=== PATIENT | male | born 1955 | race Caucasian/White ===

== ENCOUNTER 2021-09-06 13:19 | Outpatient (CLI) | payer MEDICARE, SELFPAY ==
--- NOTE | ~2021-09-06 | XR_ITS ---
XR chest 2V DATE: 09/06/2021 13:44 INDICATION: Cough for 2 months. Covid infection in July 2021 TECHNIQUE: 2 views COMPARISON: 02/13/2018 two-view chest, PA and lateral projections FINDINGS: Heart size is within normal limits. Is aortic calcification, ectasia and tortuosity. No hil ar or mediastinal enlargement. No pulmonary infiltrate or consolidation, pleural effusion or pulmonary vascular congestion or pneumo thorax is detected. There is diffuse osteopenia. There is degenerative spurring of the thoracic spine. Surgical clips are noted overlying the anterior upper abdomen on lateral view, likely due to cholecys tectomy. IMPRESSION: No active cardiac pulmonary disease Osteopenia Reviewed, dictated and finalized at location [facility]. [facility]
== END 2021-09-06 13:20 | disposition home or self-care (01) ==
LOC: CHSLAB 13:28
PROVIDERS: PCP Internal Medicine; Visit Provider Internal Medicine
DX: R05.9 Cough, unspecified (principal); Z79.899 Other long term (current) drug therapy
CPT/HCPCS: 71046

== ENCOUNTER 2022-08-11 10:50 | Emergency (ER) | payer MEDICARE, SELFPAY ==
--- NOTE | ~2022-08-11 | US_ITS ---
EXAMINATION: US venous doppler [facility] DATE: 08/11/2022 13:53 INDICATION: Left lower limb pain post recent cessation of anticoagulation TECHNIQUE: Grayscale ultrasound images without and with compression and Doppler ultrasound images of the left lower extremity veins were obtained. COMPARISON: None. FINDINGS: The visualized portions of left common femoral vein, profunda (deep) femoral vein, femoral vein, popl iteal vein, peroneal veins, posterior tibial veins, gastrocnemius vein and greater saphenous vein out flow are patent. IMPRESSION: 1. No deep venous thrombosis in the left lower limb. Reviewed, dictated and finalized at location [facility]
[2022-08-11 11:28] VITALS: BP 132/91; PULSE 86; RESP 16; TEMP 36.8; O2SAT 98
--- NOTE | 2022-08-11 12:32 | ED.EXTPRO ---
HPI - Extremity Problem General Chief complaint: Extremity Problem,Nontraumatic Stated complaint: Leg pain Time Seen by Provider: 08/11/22 11:06 Source: patient Mode of arrival: ambulatory Limitations: no limitations History of Present Illness HPI Narrative: Patient is a 66 y/o male who presents to the ED with c/o L calf pain. Patient reports having pain in his left calf for the past 3 days. He does note he was cleaning and doing more strenuous activity on Saturday and noted some discomfort initially afterwards. The pain is mild and intermittent. He has not tried anything for pain. Patient reports he had been on Xarelto for 7 years due to history of postsurgical DVT and atrial fibrillation. He was taken off his Xarelto approx. 1 month ago after having loop recorder implanted and no further signs of atrial fibrillation. Patient is concerned he may now have a blood clot. Denies any swelling, redness, warmth in LLE. He is able to ambulate. Denies fevers. Denies SOB or CP. Related Data Allergies Allergy/AdvReac Type Severity Reaction Status Date / Time clarithromycin Allergy Intermediate Unknown Verified 08/11/22 11:00 lisinopril Allergy Intermediate Unknown Verified 08/11/22 11:00 Penicillins Allergy Intermediate Unknown Verified 08/11/22 11:00 prochlorperazine Allergy Intermediate Unknown Verified 08/11/22 11:00 tetanus immune globulin Allergy Mild swelling Verified 08/11/22 11:00 at injection site heparin Allergy Unknown GOT BLOOD Verified 08/11/22 11:00 CLOTS Heparin Sodium Allergy Intermediate Unknown Uncoded 08/11/22 10:51 Review of Systems Review of Systems: CONSTITUTIONAL: Denies fever, chills, or sweats. SKIN: See HPI. MUSCULOSKELETAL: See HPI. NEUROLOGIC: Denies tingling, numbness, or weakness. All systems reviewed & are unremarkable except as noted in HPI and below [facility] Past Medical History Medical History (Updated 08/11/22 @ 14:29 by Johanna Chung PA-C) Atrial fibrillation (11/05/17) GERD (gastroesophageal reflux disease) (11/05/17) Hx of deep venous thrombosis Hx of pulmonary embolus Hypertension (11/05/17) Surgical History Surgical History (Updated 08/11/22 @ 13:54 by Johanna Chung PA-C) History of gastric bypass Social History Social History (Updated 08/11/22 @ 13:54 by Johanna Chung PA-C) Smoking status: Never smoker Exam Narrative: GENERAL: Well appearing, obese, non-toxic, in no acute distress. HEAD: Normocephalic, atraumatic. NECK: Supple. No adenopathy, no masses. RESPIRATORY: Airway patent, respirations nonlabored. Clear to auscultation bilaterally, no rales, rhonchi, wheezing. CARDIOVASCULAR: Regular rate and rhythm without murmurs, rubs, or gallops. Pedal pulses 2+ and equal bilaterally. MUSCULOSKELETAL: Moves all extremities. Strength/ROM intact without gross deformities. No significant calf tenderness to palpation. No edema. No redness/warmth to L lower leg. Area of ecchymosis to L lateral lower leg, not significantly tender. SKIN: Warm, dry, normal color. No rashes. No wounds. NEURO: A&O X3. Speech clear. Cranial nerves II-XII grossly intact. No ataxic movements. PSYCHIATRIC: Appropriate mood and affect. Normal interaction. Course Vital Signs Vital signs: Vital Signs Temperature 98.3 F 08/11/22 11:28 Pulse Rate 86 08/11/22 11:28 Respiratory Rate 16 08/11/22 11:28 Blood Pressure 132/91 H 08/11/22 11:28 Pulse Oximetry 98 08/11/22 11:28 Temperature 98.0 F 08/11/22 14:47 Pulse Rate 79 08/11/22 14:47 Respiratory Rate 16 08/11/22 14:47 Blood Pressure 136/80 08/11/22 14:47 Pulse Oximetry 98 08/11/22 14:47 MDM - Extremity (Nontraumatic) MDM Narrative Medical decision making narrative: Patient presented to ED with several day history of mild left calf pain. History of DVT in the past, recently taken off of his Xarelto, concerned he may have developed another DVT. Vitals stable upon arrival. Exam f
--- NOTE | 2022-08-11 13:55 | ECG_ITS ---
Measurements Intervals [place] Rate: 75 P: 62 CA: 172 QRS: -27 QRSD: 112 T: 0 QT: 372 QTc: 415 Interpretive Statements SINUS RHYTHM INTRAVENTRICULAR CONDUCTION DELAY VOLTAGE CRITERIA FOR LVH BORDERLINE R WAVE PROGRESSION, ANTERIOR LEADS BORDERLINE T WAVE ABNORMALITY- INFERIOR LEADS BORDERLINE ECG NO PREVIOUS ECG AVAILABLE FOR COMPARISON Electronically Signed On 08-11-2022 16:12:26 [employer]ONG AND DANCE PERFORMER by Rashaun Ruiz D.O.
[2022-08-11 14:47] VITALS: BP 136/80; PULSE 79; RESP 16; TEMP 36.7; O2SAT 98
== END 2022-08-11 14:48 | disposition home or self-care (01) ==
PROVIDERS: Emergency Provider Emergency Medicine; PCP Internal Medicine
DX: M79.662 Pain in left lower leg (principal); I48.91 Unspecified atrial fibrillation; K21.9 Gastro-esophageal reflux disease without esophagitis; I10 Essential (primary) hypertension; Z86.718 Personal history of other venous thrombosis and embolism; Z86.711 Personal history of pulmonary embolism; Z79.01 Long term (current) use of anticoagulants; Z98.84 Bariatric surgery status
CPT/HCPCS: 93005; 93971; 99284

== ENCOUNTER 2023-11-15 18:08 | Emergency (ER) | payer MEDICARE, SELFPAY ==
[2023-11-15] VITALS (13 sets, daily range): BP systolic 118–167; BP diastolic 77–94; PULSE 77–137; RESP 12–20; TEMP 36.7–36.8; O2SAT 92–100
--- NOTE | ~2023-11-15 | XR_ITS ---
EXAMINATION: XR chest 1V portable DATE: 11/15/2023 18:26 INDICATION: Atrial fibrillation with rapid ventricular rate. TECHNIQUE: A single frontal view of the chest was obtained. COMPARISON: None. FINDINGS: There is no pneumonia, pleural effusion, or pneumothorax. The heart size is normal. There i s electronic implant overlies left chest. IMPRESSION: 1. No acute cardiopulmonary disease. Reviewed, dictated and finalized at location E.
--- NOTE | 2023-11-15 18:13 | ECG_ITS ---
SEE SCANNED COPY FOR CONFIRMED REPORT MTDD
--- NOTE | 2023-11-15 18:33 | ED.GENADULT ---
HPI - General Adult General Chief complaint: Unspecified Stated complaint: afib call from cardio regarding loop recorder Time Seen by Provider: 11/15/23 18:15 History of Present Illness HPI narrative: the patient is a 68-year-old male with a distant history of atrial fibrillation diagnosed 8 years ago was on Xarelto for 5 years as well as amiodarone. He had no recurrence of atrial fibrillation was in sinus rhythm for prolonged period of time. He underwent a 30 day Holter monitor which revealed no atrial fibrillation so loop recorder was implanted 3 years ago and he has been off of amiodarone and Xarelto since that time. 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 He was told that he is allergic to heparin at that time. He has had bilateral total knee arthroplasties. Other comorbidities include GERD and hypertension. The patient received a message from the loop recorder monitoring company stating that he was back in atrial fibrillation since 10:30 p.m. last night, 11/14/2023. The patient is asymptomatic. He denies any nausea or vomiting or diaphoresis or shortness of breath or chest discomfort or tightness or heaviness. He is unable to tell that he is in atrial fibrillation with rapid heartbeat. He presents for further management. He denies other complaints are Related Data Home Medications Medication Instructions Recorded Confirmed Unable to Obtain Home Medications 11/15/23 11/15/23 Allergies Allergy/AdvReac Type Severity Reaction Status Date / Time clarithromycin Allergy Intermediate Unknown Verified 11/15/23 18:18 lisinopril Allergy Intermediate Unknown Verified 11/15/23 18:18 Penicillins Allergy Intermediate Unknown Verified 11/15/23 18:18 prochlorperazine Allergy Intermediate Unknown Verified 11/15/23 18:18 tetanus immune globulin Allergy Mild swelling Verified 11/15/23 18:18 at injection site heparin Allergy Unknown GOT BLOOD Verified 11/15/23 18:18 CLOTS Heparin Sodium Allergy Intermediate Unknown Uncoded 11/15/23 18:18 Review of Systems Review of Systems: All systems reviewed & are unremarkable except as noted in HPI and below Constitutional: Constitutional: Denies chills, Denies excessive sweating, Denies fatigue, Denies fever(s), Denies headache(s) and Denies weakness Eyes: Eyes: Denies change in vision and Denies photophobia ENT: Denies dysphagia, Denies dizziness, Denies headache(s), Denies lip swelling, Denies nasal congestion, Denies sore throat and Denies tongue swelling Cardiovascular: Cardiovascular: Denies chest pain, Denies syncope, Denies rapid heart rate and Denies dyspnea Respiratory: Respiratory: Denies cough, Denies dyspnea and Denies wheezing Gastrointestinal: Gastrointestinal: Denies abdominal pain, Denies constipation, Denies dysphagia, Denies diarrhea, Denies nausea and Denies vomiting Genitourinary: Genitourinary: Denies hematuria, Denies dysuria, Denies urinary frequency and Denies urinary urgency Musculoskeletal: Musculoskeletal: Denies back pain, Denies myalgias, Denies arthralgias, Denies joint swelling and Denies numbness Integumentary/Breasts: Skin/Breast: Denies pruritus, Denies erythema and Denies rash Neurologic: Denies confusion, Denies dizziness, Denies syncope, Denies headache(s), Denies focal weakness, Denies numbness and Denies weakness Psychiatric: Psychiatric: Denies anxiety and Denies confusion Endocrine: Endocrine: Denies excessive sweating and Denies fatigue Hematologic/Lymphatic: Hematologic/Lymphatic: Denies easy bleeding and Denies easy bruising Allergic/Immunologic: Allergic/Immunologic: Denies lip swelling, Denies tongue swelling and Denies wheezing PMFSH Past Medical History Medical History (Reviewed 11/15/23 @ 18:39 by Ankit Duran
--- NOTE | 2023-11-15 18:56 | PC.NURSE ---
Assumed care of pt at this time. Pt to be medicated as ordered for a-fib. Pt states is asymptomatic at this time. Pt states is not on anticoagulants has been off of them for approx 2 years.
[2023-11-15] MEDS: dilTIAZem HCl INJ 25 MG/5 ML VIAL 10 MG IV PUSH (19:02)
[2023-11-15] MEDS: dilTIAZem 100 MG/100 ML 100 MG/100 ML BAG IV CONT (19:04)
[2023-11-15] MEDS: MAGNESIUM SULF 2 GM/WATER 50ML 2 GM/50 ML BAG IVPB (19:08)
[2023-11-15 19:15] LABS: Basophils Absolute Auto 0.04 K/mm3 (0.00-0.10); Basophils Percent Auto 0.6 % (0.0-1.0); Eosinophils Absolute Auto 0.06 K/mm3 (0.02-0.50); Eosinophils Percent Auto 0.9 % (1.0-6.0); Hematocrit 52.7 % (37.0-46.0); Immature Granulocyte Absolute 0.05 K/mm3 (0.00-0.00); Immature Granulocyte Percent A 0.8 % (0.0-0.0); Lymphocytes Absolute Auto 1.08 K/mm3 (1.10-4.50); Lymphocytes Percent Auto 16.6 % (18.0-42.0); Mean Corpuscular HGB Conc 32.3 g/dL (32-36); Mean Corpuscular Volume 86.7 fL (78.0-102.0); Mean Platelet Volume 12.4 fl (8.7-11.0); Monocytes Absolute Auto 0.64 K/mm3 (0.10-0.90); Monocytes Percent Auto 9.8 % (2.0-11.0); Neutrophils Absolute Auto 4.63 K/mm3 (1.70-7.20); Neutrophils Percent Auto 71.3 % (50.0-70.0); Platelet Count Result 141 K/mm3 (150-420); Red Blood Count 6.08 M/mm3 (4.70-6.10); Red Cell Distribution Width 15.1 % (11.6-14.4); White Blood Count 6.5 K/mm3 (4.8-10.8)
[2023-11-15 19:30] LABS: Partial Thromboplastin Time 27.3 Sec (23.9-30.70); Prothrombin Time 10.9 Seconds (9.50-12.1)
[2023-11-15 19:37] LABS: Alanine Aminotransferase 48 U/L (16-63); Albumin Level 3.7 g/dL (3.4-5.0); Alkaline Phosphatase 92 U/L (46-116); Anion Gap 5 mmol/L (4-12); Aspartate Amino Transferase 28 U/L (15-37); Bilirubin,Total 0.6 mg/dL (0.00-1.00); Blood Urea Nitrogen 15 mg/dL (7-18); Calcium 9.7 mg/dL (8.5-10.1); Carbon Dioxide 31 mmol/L (21-32); Chloride 109 mmol/L (98-108); Estimated Glomerular Filt Rate > 60; Glucose 81 mg/dL (70-99); Magnesium 2.2 mg/dL (1.8-2.4); NT Pro B Type Natriuretic Pept 1118 pg/mL (0-125); Osmolality Calculated 299 mOsm/kg (285-295); Potassium 3.9 mmol/L (3.5-5.1); Sodium 145 mmol/L (136-145); Total Protein 6.5 g/dL (6.4-8.2); Troponin I 8.6 ng/L (0.00-60.4)
[2023-11-15] MEDS: POTASSIUM CHLORIDE 20 MEQ ER TABLET 40 MEQ PO (20:18)
[2023-11-15] MEDS: RIVAROXABAN 15 MG TABLET PO (20:25)
== END 2023-11-15 21:52 | disposition short-term general hospital (02) ==
PROVIDERS: Emergency Provider Emergency Medicine; PCP Internal Medicine
DX: I48.0 Paroxysmal atrial fibrillation (principal); I10 Essential (primary) hypertension; K21.9 Gastro-esophageal reflux disease without esophagitis; Z98.84 Bariatric surgery status; Z86.718 Personal history of other venous thrombosis and embolism; Z86.711 Personal history of pulmonary embolism
CPT/HCPCS: 36415; 71045; 80053; 83605; 83735; 83880; 84484; 85025; 85610; 85730; 93005; 96365; 96366; 96368; 99285; A9270; J3475

== ENCOUNTER 2023-11-15 23:06 | Inpatient (IN) | payer MEDICARE, SELFPAY ==
--- NOTE | 2023-11-15 22:38 | ADMGEN ---
This patient, Bennie Tapia, was admitted to IMU Room 200-01. Patient/family oriented to hospital policies and general routines including ID bracelet, bed and alarms, visiting hours, pain management, procedures, bathroom and other care routines, personal items, smoking policy, room service/diet, and visiting hours. Information on how to activate the Rapid Response Team has been discussed. Patient/Family are encouraged to report perceived risks to care and to ask questions if they do not understand what they are told or what they should do.
[2023-11-15 22:40] VITALS: BP 124/101; PULSE 106; RESP 18; TEMP 36.4; O2SAT 99; BMI 40.6
--- NOTE | 2023-11-15 22:45 | PC.NURSE ---
Pt arrived to IMU 200 at 2230 with cardizem drip at 5mg/hr from [facility] ER. Left Message for admitting provider to notify of arrival at 2. Continuing diltiazem at this time until provider examines pt.
--- NOTE | 2023-11-15 23:06 | PM.IMHP ---
H&P: HPI History of Present Illness Date/Time: 11/15/23 23:06 Chief Complaint: abnormal rhythm Narrative: This is a 68-year-old male with past medical history significant for atrial fibrillation, obesity. Patient presents to the emergency room after given notice that his loop recorder showed atrial fibrillation and was prompted to come to the emergency he presented to outside facility and was transferred to our facility for further evaluation management and treatment. Patient had been in the mall and walked over 6000 steps was feeling well denies any lightheadedness, syncope or near syncope, no shortness of breath, no pedal swelling no leg swelling no chest pain no palpitations. Patient was started on diltiazem drip and transferred to our facility. EXAMINATION: XR chest 1V portable DATE: 11/15/2023 18:26 INDICATION: Atrial fibrillation with rapid ventricular rate. TECHNIQUE: A single frontal view of the chest was obtained. COMPARISON: None. FINDINGS: There is no pneumonia, pleural effusion, or pneumothorax. The heart size is normal. There is electronic implant overlies left chest. IMPRESSION: 1. No acute cardiopulmonary disease. Review of Systems Review of Systems: Abnormal heart rhythm Constitutional: Constitutional: Denies chills, Denies fatigue, Denies fever(s), Denies night sweats and Denies weakness Eyes: Eyes: Denies change in vision ENT: Denies dysphagia, Denies vertigo, Denies dizziness and Denies odynophagia Cardiovascular: Cardiovascular: Denies chest pain, Denies pedal edema, Denies leg edema, Denies radiating jaw, neck or arm pain, Denies palpitations and Denies dyspnea Respiratory: Respiratory: Denies chest congestion and Denies cough Gastrointestinal: Gastrointestinal: Denies abdominal pain, Denies dyspepsia, Denies heartburn, Denies diarrhea, Denies nausea and Denies vomiting Genitourinary: Genitourinary: Denies dysuria and Denies flank pain Musculoskeletal: Musculoskeletal: Denies back pain Integumentary/Breasts: Skin/Breast: Denies rash Neurologic: Denies focal weakness and Denies Sensory deficit (Neuro) Psychiatric: Psychiatric: Reports no additional psychiatric complaints and Reports as per HPI Endocrine: Endocrine: Denies cold intolerance, Denies fatigue, Denies flushing, Denies heat intolerance, Denies polyphagia, Denies polydipsia, Denies polyuria and Denies palpitations Hematologic/Lymphatic: Hematologic/Lymphatic: Reports no additional hematologic/lymphatic complaints and Reports as per HPI Allergic/Immunologic: Allergic/Immunologic: Reports no additional allergic/immunologic complaints and Reports as per HPI [facility] Past Medical History Medical History Atrial fibrillation (11/05/17) GERD (gastroesophageal reflux disease) (11/05/17) Hx of deep venous thrombosis Hx of pulmonary embolus Hypertension (11/05/17) Surgical History Surgical History History of gastric bypass Family History Family History (Updated 11/15/23 @ 23:58 by Palak Chavira RN) Mother age 52 Sibling Hypertension Social History Social History Smoking status: Never smoker Second hand tobacco smoke exposure: No Alcohol intake: current Substance use: never Do You Feel Safe in your Home?: Yes Lack of Transportation: No Lack of Food: Never True Current Housing: I Have Housing Concerned About Future Housing: No Difficulty Paying Gas/Electric Bills: No Difficulty Paying for Meds: No Currently Unemployed: YES Education: High School Diploma/GED Difficulty w/ Childcare or Family Care: No Spiritual care concerns: No Meds Home Medications and Allergies Home Medications Medication Instructions Recorded Confirmed Type Adults Multivitamin 1 cap PO DAILY 11/15/23 11/15/23 History ascorbi
[2023-11-16] VITALS (27 sets, daily range): BP systolic 104–149; BP diastolic 67–104; PULSE 62–133; RESP 12–24; TEMP 36.2–36.8; O2SAT 97–100
--- NOTE | 2023-11-16 | ECHO_ITS ---
Patient Info Name: Bennie Tapia Age: 68 years : 1955 Gender: Male Ht: 70 in Wt: 283 lbs BSA: 2.57 m2 HR: 120 bpm BP: 120 / 76 mmHg Heart Rhythm: Atrial Fibrillation Technical Quality: Fair Exam Date: 11/16/2023 7:16 AM Exam Location: Echo Lab Exam Room: [facility] Patient Status: Inpatient Admit Date: 11/15/2023 Staff Ordering Physician: Marques Joy MD Acrylic Fabricator: Danielle Huntley RDCS Attending Provider: Marques Joy MD Referring Physician: Rufino LESLIE; Exam Type: CA echo doppler color flow Study Info Indications - afib Complete two-dimensional, color flow and Doppler transthoracic echocardiogram is performed. Summary 1. Complete two-dimensional, color flow and Doppler transthoracic echocardiogram is performed. 2. Left ventricular chamber dimension is normal. 3. Left ventricular systolic function is normal, estimated at 55-60%. 4. There is mildly increased left ventricular wall thickness. 5. The left ventricular diastolic function is indeterminate. 6. Left atrial chamber dimension is moderately enlarged. 7. There is mild mitral valve regurgitation. 8. There is mild tricuspid valve regurgitation. Left Ventricle Left ventricular chamber dimension is normal. Left ventricular systolic function is normal, estimated at 55-60%. There is mildly increased left ventricular wall thickness. The left ventricular diastolic function is indeterminate. Right Ventricle Right ventricular chamber dimension is normal. Right ventricular systolic function is normal. Left Atria Left atrial chamber dimension is moderately enlarged. Right Atria Right atrial chamber dimension is normal. Atrial Septum Intact interatrial septum visualized by color flow imaging. Aortic Valve The aortic valve is trileaflet. There is mild aortic valve sclerosis. There is no aortic valve stenosis. There is trace aortic valve regurgitation. Pulmonic Valve The pulmonic valve is normal. There is no pulmonic valve stenosis. There is trace pulmonic regurgitation. Mitral Valve The mitral valve has normal leaflets. There is no mitral valve stenosis. There is mild mitral valve regurgitation. Tricuspid Valve The tricuspid valve leaflets are normal. There is no significant tricuspid valve stenosis. There is mild tricuspid valve regurgitation. No pulmonary hypertension, estimated pulmonary arterial systolic pressure is 32 mmHg. Pericardium/Pleural The pericardium appears normal. There is no pericardial effusion. Inferior Vena Cava Dilated inferior vena cava with >50% collapse upon inspiration consistent with elevated right atrial pressure, 10 mmHg. Aorta The aortic root size at the sinus of Valsalva is normal. Left Ventricular Outflow Tract Name Value Normal LVOT 2D LVOT Diameter 2.1 cm LVOT Doppler LVOT Peak Gradient 4 mmHg LVOT Mean Gradient 2 mmHg LVOT VTI 21 cm LVOT VTI/AV VTI Ratio 0.9 LVOT Stroke Volume 72 ml LVOT CO 15.6 l/min LVOT CI 6.0 l/min/m2 Pulmonic Valve
[2023-11-16] MEDS: FELODIPINE 2.5 MG TABCR PO (00:08)
[2023-11-16] MEDS: dilTIAZem 100 MG/100 ML 100 MG/100 ML BAG IV CONT (00:11)
[2023-11-16] MEDS: ACETAMINOPHEN 500 MG TABLET 1000 MG PO ×2 (00:44→12:00)
[2023-11-16 04:14] LABS: Anion Gap 4 mmol/L (4-12); Blood Urea Nitrogen 14 mg/dL (9-20); Calcium 9.8 mg/dL (8.4-10.2); Carbon Dioxide 26 mmol/L (22-30); Chloride 110 mmol/L (98-107); Estimated CRCL calculation 135 ml/min; Estimated Glomerular Filt Rate > 60; Glucose 86 mg/dL (65-110); Potassium 3.9 mmol/L (3.4-5.0); Sodium 140 mmol/L (137-145)
--- NOTE | 2023-11-16 09:20 | PC.NURSE ---
Dr. Mcnair has been placed to review the current POC et review the pts B/P et HR. The pt is current on a 5mg Cardizem gtt IV.
--- NOTE | 2023-11-16 10:27 | PC.NURSE ---
Dr. Mcnair has been given report on the pt with no new interventions at this time.
--- NOTE | 2023-11-16 10:59 | PM.CNCAR ---
Assessment and Plan Assessment and plan (1) Atrial fibrillation: Onset Date: 11/05/17 Code(s): I48.91 - Unspecified atrial fibrillation Status: Acute Assessment and Plan: This is paroxysmal in nature. He has had a previous episode back in 2017 requiring cardioversion. He had been off of anticoagulation and rhythm drug for the past 3 years. He was being monitored via a loop recorder. He has had an asymptomatic recurrence of his atrial fibrillation with rapid ventricular response. Heart rate is still mildly elevated despite low-dose diltiazem drip. He has been in atrial fibrillation for less than 48 hours. He has already received anticoagulation. I think it is reasonable to try did pursue rhythm control strategy initially. Will DC diltiazem and switch him to amiodarone 150 mg IV bolus in standard drip per protocol. Continue anticoagulation Xarelto 20 mg daily. If he converts and if his echocardiogram is unremarkable, he can be discharged home. I would not continue amiodarone terminal operator on him but at least in the short term that is a reasonable option. Could also use Multaq or other medications as workup would indicate and support. 2D echocardiogram Doppler is ordered and will be reviewed. Will check a magnesium as well as TSH and T4 levels. If he does not convert by Saturday, will perform inpatient cardioversion. Regarding his BP regimen/AFib, it may make more sense especially given his previous cardiomyopathy to have him on metoprolol rather than felodipine. Will start low-dose metoprolol succinate at 25 mg p.o. daily (2) Hypertension: Onset Date: 11/05/17 Code(s): I10 - Essential (primary) hypertension Status: Acute Assessment and Plan: Discontinue felodipine. Stop diltiazem drip. Start metoprolol and adjust medicines as need be. He does have an Greg induce cough and would want to avoid GREG-inhibitor but to consider an ARB if needed (3) Hx of deep venous thrombosis: Code(s): Z86.718 - Personal history of other venous thrombosis and embolism Status: Acute Assessment and Plan: Anticoagulation is recommended and Xarelto will be resumed (4) Hx of pulmonary embolus: Code(s): Z86.711 - Personal history of pulmonary embolism Status: Acute Assessment and Plan: As above (5) History of gastric bypass: Code(s): Z98.84 - Bariatric surgery status Status: Acute Assessment and Plan: lost significant weight and congratulated (6) Morbid obesity: Code(s): E66.01 - Morbid (severe) obesity due to excess calories Status: Acute Assessment and Plan: Improved (7) History of cardiomyopathy: Code(s): Z86.79 - Personal history of other diseases of the circulatory system Status: Acute Assessment and Plan: Previous history of an EF around 40% thought to be tachycardic induced. Follow-up echo in April 2017 showed improvement and normalization of his EF back to 61%. Echo pending History of Present Illness History of Present Illness Consult date/time: 11/16/23 10:59 Requesting physician: Marques Joy MD Consult reason: atrial fibrillation Reason For Visit: A Fib Narrative: Reason for consultation: AFib Date of service 11/16/2023 Requesting provider: Dr. Joy History: Patient is a 78-year-old male who has a history of a paroxysmal atrial fibrillation. Followed her at [facility] in [place]. He lives [place]. Initial episode of atrial fibrillation was several years ago in 2017. He was found to be in atrial fibrillation also a mild cardiomyopathy that time. Ejection fraction did normalize by repeat echo in April of 2017. He was initially treated with Xarelto and amiodarone. At his insistence he was taken off amiodarone about 3 years ago because of worry about side effects. Additionally he stopped Xarelto also. Loop recorder was implanted however at the time and his rhythm was being m
[2023-11-16] MEDS: AMIODARONE 150 MG/D5W 100 ML 150 MG/100 ML BAG 600 MG IV CONT (11:56)
[2023-11-16 11:59] LABS: T4 Thyroxine 9.05 ug/dL (5.53-11.0)
[2023-11-16] MEDS: METOPROLOL SUCCINATE EXT REL 25 MG TABCR PO (12:00)
[2023-11-16] MEDS: AMIODARONE 360 MG/D5W 200 ML 360 MG/200 ML BAG 33.33 MG IV CONT (12:01)
[2023-11-16 12:12] LABS: Thyroid Stimulating Hormone 0.559 uIU/mL (0.465-4.680)
--- NOTE | 2023-11-16 14:26 | PM.IMPN ---
Progress Note: A&P Assessment and Plan (1) Atrial fibrillation: Onset Date: 11/05/17 Code(s): I48.91 - Unspecified atrial fibrillation Status: Acute (2) GERD (gastroesophageal reflux disease): Onset Date: 11/05/17 Code(s): K21.9 - Gastro-esophageal reflux disease without esophagitis Status: Acute (3) Hypertension: Onset Date: 11/05/17 Code(s): I10 - Essential (primary) hypertension Status: Acute (4) Morbid obesity: Code(s): E66.01 - Morbid (severe) obesity due to excess calories Status: Acute Plan 68-year-old male with past medical history of atrial fibrillation order showed atrial fibrillation are. He denies any symptoms related to this. In the was noted to be in atrial fibrillation with a rate of 120 to 130s. Has been started on diltiazem drip and was admitted for further treatment. Chest x-ray showed no acute cardiopulmonary disease. Cardiology has been consulted. Echocardiogram performed 11/16/2023: EF 55-60% indeterminate diastolic function left atrial chamber moderately enlarged mild MR mild TR. Patient has been transitioned to amiodarone IV Xarelto. Beta-isela started as well. Hypertension History of DVT History of PE History of gastric bypass Morbid obesity History of cardiomyopathy ejection fraction 40% in the past. Subjective Date/time seen: 11/16/23 14:26 Interval history: No overnight events noted. AFib with RVR noted cardiology consulted. Review of Systems Review of Systems: All systems reviewed & are unremarkable except as noted in HPI and below Exam Narrative: GENERAL: Well appearing, obese, non-toxic, in no acute distress. HEAD: Normocephalic, atraumatic. NECK: Supple. No adenopathy, no masses. RESPIRATORY: Airway patent, respirations nonlabored. Clear to auscultation bilaterally, no rales, rhonchi, wheezing. CARDIOVASCULAR: Tachycardic with AFib rhythm without murmurs, rubs, or gallops. Pedal pulses 2+ and equal bilaterally. MUSCULOSKELETAL: Moves all extremities. Strength/ROM intact without gross deformities. No significant calf tenderness to palpation. No edema. No redness/warmth to L lower leg. Area of ecchymosis to L lateral lower leg, not significantly tender. SKIN: Warm, dry, normal color. No rashes. No wounds. NEURO: A&O X3. Speech clear. Cranial nerves II-XII grossly intact. No ataxic movements. PSYCHIATRIC: Appropriate mood and affect. Normal interaction. Objective Data Vital Signs Vital Signs: Vital Signs - 24 hr 11/15/23 22:40 11/16/23 00:11 11/16/23 00:13 Temperature 97.6 F 97.2 F L Pulse Rate 106 H 122 H 105 H Respiratory Rate 18 18 Blood Pressure 124/101 H 139/104 H 139/104 H Pulse Oximetry 99 98 Oxygen Delivery 11/16/23 00:00 11/16/23 00:00 11/16/23 02:14 Temperature Pulse Rate 122 H 105 H Respiratory Rate Blood Pressure 129/104 H Pulse Oximetry Oxygen Delivery Room Air 11/16/23 02:00 11/16/23 04:20 11/16/23 04:00 Temperature Pulse Rate 105 H 105 H 110 H Respiratory Rate Blood Pressure 120/90 Pulse Oximetry Oxygen Delivery 11/16/23 04:00 11/16/23 04:22 11/16/23 05:50 Temperature 97.6 F 97.6 F Pulse Rate 114 H 114 H 112 H Respiratory Rate 18 18 18 Blood Pressure 120/90 120/76 Pulse Oximetry 100 100 98 Oxygen Delivery Room Air 11/16/23 06:00 11/16/23 05:50 11/16/23 07:49 Temperature Pulse Rate 101 H 112 H Respiratory Rate Blood Pressure 120/76 Pulse Oximetry Oxygen Delivery Room Air 11/16/23 08:00 11/16/23 08:00 11/16/23 10:00 Temperature 98.2 F 97.7 F 97.6 F Pulse Rate 80 108 H 117 H Respiratory Rate 16 18 20 Blood Pressure 121/95 H 131/91 H 125/76 Pulse Oximetry 98 97 Oxygen Delivery 11/16/23 11:56 11/16/23 12:00 11/16/23 12:01 Temperature Pulse Rate 126 H 126 H 133 H Respiratory Rate Blood Pressure Pulse Oximetry Oxygen Delivery 11/16/23 12:00 11/16/23 08:00
[2023-11-16] MEDS: RIVAROXABAN 20 MG TABLET PO (16:49)
[2023-11-16] MEDS: AMIODARONE 360 MG/D5W 200 ML 360 MG/200 ML BAG 16.67 MG IV CONT (17:40)
[2023-11-17] VITALS (21 sets, daily range): BP systolic 109–140; BP diastolic 70–92; PULSE 84–123; RESP 12–20; TEMP 36.2–37; O2SAT 97–99
[2023-11-17 04:02] LABS: Basophils Percent Auto 0.5 % (0.2-1.2); Eosinophils Absolute Auto 0.1 K/mm3 (0-0.3); Eosinophils Percent Auto 1.4 % (0-4.4); Hematocrit 50.3 % (42.0-52.0); Hemoglobin 16.3 g/dL (14.0-18.0); Immature Granulocyte Absolute 0.03 K/mm3 (0.00-0.031); Immature Granulocyte Percent A 0.5 % (0-0.5); Immature Platelet Fraction Pct 8.9 % (0.9-11.2); Lymphocytes Absolute Auto 1.19 K/mm3 (0.9-3.2); Lymphocytes Percent Auto 20.3 % (18.3-44.2); Mean Corpuscular HGB Conc 32.4 g/dl (32-36); Mean Corpuscular Hemoglobin 28.3 pg (26-34); Mean Corpuscular Volume 87.5 fl (80-100); Mean Platelet Volume 12.1 fl (7.4-10.4); Monocytes Absolute Auto 0.6 K/mm3 (0.1-0.6); Monocytes Percent Auto 9.9 % (2.6-8.5); Neutrophils Absolute Auto 3.9 K/mm3 (1.3-6.7); Neutrophils Percent Auto 67.4 % (45.5-73.1); Platelet Count Result 123 k/mm3 (150-375); Red Blood Count 5.75 M/mm3 (4.6-6.20); Red Cell Distribution Width 15.6 % (11.5-14.5); White Blood Count 5.9 K/mm3 (4.5-10.0)
[2023-11-17 04:12] LABS: Alanine Aminotransferase 32 U/L (6-50); Albumin Level 3.6 g/dL (3.5-5.1); Alkaline Phosphatase 77 U/L (38-126); Anion Gap 1 mmol/L (4-12); Aspartate Amino Transferase 24 U/L (17-59); Bilirubin,Total 0.7 mg/dL (0.2-1.3); Blood Urea Nitrogen 15 mg/dL (9-20); Calcium 9.8 mg/dL (8.4-10.2); Carbon Dioxide 27 mmol/L (22-30); Chloride 108 mmol/L (98-107); Estimated CRCL calculation 102 ml/min; Estimated Glomerular Filt Rate > 60; Glucose 89 mg/dL (65-110); Magnesium 2.3 mg/dL (1.6-2.3); Potassium 3.8 mmol/L (3.4-5.0); Sodium 136 mmol/L (137-145)
[2023-11-17] MEDS: AMIODARONE 360 MG/D5W 200 ML 360 MG/200 ML BAG 16.67 MG IV CONT ×2 (04:32→14:40)
--- NOTE | 2023-11-17 08:56 | PM.PNCARD ---
Progress Note: A&P Assessment and Plan (1) Atrial fibrillation: Onset Date: 11/05/17 Code(s): I48.91 - Unspecified atrial fibrillation Status: Acute Assessment and Plan: This is paroxysmal in nature. He has had a previous episode back in 2017 requiring cardioversion. He had been off of anticoagulation and rhythm drug for the past 3 years. He was being monitored via a loop recorder. He has had an asymptomatic recurrence of his atrial fibrillation with rapid ventricular response. Continue amiodarone drip. Will keep NPO after midnight for cardioversion tomorrow. Anticipate DC after that. He has been in atrial fibrillation for less than 48 hours. He has already received anticoagulation. Continue anticoagulation Xarelto 20 mg daily. If he does not convert by Saturday, will perform inpatient cardioversion. Potassium is low normal and will place a 40 mEq p.o. x1 (2) Hypertension: Onset Date: 11/05/17 Code(s): I10 - Essential (primary) hypertension Status: Acute Assessment and Plan: Continue metoprolol He does have an Greg induce cough and would want to avoid GREG-inhibitor but to consider an ARB if needed (3) Hx of deep venous thrombosis: Code(s): Z86.718 - Personal history of other venous thrombosis and embolism Status: Acute Assessment and Plan: Continue anticoagulation (4) Hx of pulmonary embolus: Code(s): Z86.711 - Personal history of pulmonary embolism Status: Acute Assessment and Plan: As above (5) History of gastric bypass: Code(s): Z98.84 - Bariatric surgery status Status: Acute Assessment and Plan: lost significant weight and congratulated (6) Morbid obesity: Code(s): E66.01 - Morbid (severe) obesity due to excess calories Status: Acute Assessment and Plan: Improved (7) History of cardiomyopathy: Code(s): Z86.79 - Personal history of other diseases of the circulatory system Status: Acute Assessment and Plan: Previous history of an EF around 40% thought to be tachycardic induced. Follow-up echo in April 2017 showed improvement and normalization of his EF back to 61%. Echo this admission shows preserved EF Subjective Date/time seen: 11/17/23 08:56 Interval history: 68-year-old with PAF Date of service 11/17/2023: Heart rate is reasonably controlled on amiodarone drip and metoprolol. He remains asymptomatic without chest pain, shortness of breath. Review of Systems Review of Systems: All systems reviewed & are unremarkable except as noted in HPI and below Constitutional: Constitutional: Denies body ache(s) and Denies excessive sweating Eyes: Eyes: Denies blurry vision ENT: Reports Normal hearing present Cardiovascular: Cardiovascular: Denies chest pain and Denies dyspnea Respiratory: Respiratory: Denies dyspnea Gastrointestinal: Gastrointestinal: Denies abdominal pain Genitourinary: Genitourinary: Denies hematuria Musculoskeletal: Musculoskeletal: Denies back pain Integumentary/Breasts: Skin/Breast: Denies dry skin Neurologic: Reports Normal hearing present and Denies Abnormal speech present Psychiatric: Psychiatric: Denies anxiety Endocrine: Endocrine: Denies excessive sweating Hematologic/Lymphatic: Hematologic/Lymphatic: Denies easy bleeding Allergic/Immunologic: Allergic/Immunologic: Denies GI upset with certain foods Exam Narrative: Patient is awake alert oriented appears to be in no acute distress. Appears stated age Const: General: comfortable and no acute distress HENMT: Face/Nose/Sinus: Normal nares present Mouth: Yes moist mucous membranes Eyes: General: appearance normal, both eyes and all related structures Sclera: sclerae normal Neck: Neck: supple and no JVD Thyroid: thyroid normal Carotids: no bruits Chest: Other: No reproducible chest wall pain to palpation Resp: Effort & Inspection: normal respir
[2023-11-17] MEDS: METOPROLOL SUCCINATE EXT REL 25 MG TABCR PO (09:28)
--- NOTE | 2023-11-17 10:20 | PM.IMPN ---
Progress Note: A&P Assessment and Plan (1) Atrial fibrillation: Onset Date: 11/05/17 Code(s): I48.91 - Unspecified atrial fibrillation Status: Acute (2) GERD (gastroesophageal reflux disease): Onset Date: 11/05/17 Code(s): K21.9 - Gastro-esophageal reflux disease without esophagitis Status: Acute (3) Hypertension: Onset Date: 11/05/17 Code(s): I10 - Essential (primary) hypertension Status: Acute (4) Morbid obesity: Code(s): E66.01 - Morbid (severe) obesity due to excess calories Status: Acute Plan 68-year-old male with past medical history of atrial fibrillation order showed atrial fibrillation are. He denies any symptoms related to this. In the was noted to be in atrial fibrillation with a rate of 120 to 130s. Has been started on diltiazem drip and was admitted for further treatment. Chest x-ray showed no acute cardiopulmonary disease. Cardiology has been consulted. Echocardiogram performed 11/16/2023: EF 55-60% indeterminate diastolic function left atrial chamber moderately enlarged mild MR mild TR. TSH normal started on amiodarone drip. Continue on Xarelto Beta-isela started as well. Hypertension History of DVT History of PE History of gastric bypass Morbid obesity History of cardiomyopathy ejection fraction 40% in the past. Subjective Date/time seen: 11/17/23 10:20 Interval history: No overnight events. Rate controlled however remains in atrial fibrillation rhythm. Denies any new complaints. Remains on IV amiodarone. Review of Systems Review of Systems: All systems reviewed & are unremarkable except as noted in HPI and below Exam Narrative: GENERAL: Well appearing, obese, non-toxic, in no acute distress. HEAD: Normocephalic, atraumatic. NECK: Supple. No adenopathy, no masses. RESPIRATORY: Airway patent, respirations nonlabored. Clear to auscultation bilaterally, no rales, rhonchi, wheezing. CARDIOVASCULAR: Rate controlled mostly AFib rhythm without murmurs, rubs, or gallops. Pedal pulses 2+ and equal bilaterally. MUSCULOSKELETAL: Moves all extremities. Strength/ROM intact without gross deformities. No significant calf tenderness to palpation. No edema. No redness/warmth to L lower leg. Area of ecchymosis to L lateral lower leg, not significantly tender. SKIN: Warm, dry, normal color. No rashes. No wounds. NEURO: A&O X3. Speech clear. Cranial nerves II-XII grossly intact. No ataxic movements. PSYCHIATRIC: Appropriate mood and affect. Normal interaction. Objective Data Vital Signs Vital Signs: Vital Signs - 24 hr 11/16/23 11:56 11/16/23 12:00 11/16/23 12:01 Temperature Pulse Rate 126 H 126 H 133 H Respiratory Rate Blood Pressure Pulse Oximetry Oxygen Delivery 11/16/23 12:00 11/16/23 11:56 11/16/23 12:00 Temperature 97.8 F Pulse Rate 106 H 127 H Respiratory Rate 24 H Blood Pressure 136/85 Pulse Oximetry 97 Oxygen Delivery Room Air 11/16/23 13:56 11/16/23 14:00 11/16/23 12:00 Temperature 97.7 F Pulse Rate 122 H 94 123 H Respiratory Rate 20 Blood Pressure 136/85 116/79 Pulse Oximetry 97 Oxygen Delivery 11/16/23 14:00 11/16/23 16:00 11/16/23 17:40 Temperature 98.1 F Pulse Rate 101 H 70 111 H Respiratory Rate 16 Blood Pressure 107/69 109/72 Pulse Oximetry 97 Oxygen Delivery 11/16/23 18:00 11/16/23 18:00 11/16/23 18:00 Temperature 98.0 F Pulse Rate 62 111 H 111 H Respiratory Rate 20 Blood Pressure 115/75 115/75 Pulse Oximetry 97 Oxygen Delivery 11/16/23 16:00 11/16/23 16:00 11/16/23 16:00 Temperature Pulse Rate 95 99 Respiratory Rate Blood Pressure 107/69 Pulse Oximetry Oxygen Delivery Room Air 11/16/23 19:47 11/16/23 19:55 11/16/23 20:00 Temperature 97.7 F Pulse Rate 100 100 96 Respiratory Rate 16 Blood Pressure 126/77 126/77 Pulse Oximetry 98 Oxygen Delivery 11/16/23 20:00 11/16/23 22:00
[2023-11-17] MEDS: POTASSIUM CHLORIDE 20 MEQ ER TABLET 40 MEQ PO (10:55)
[2023-11-17] MEDS: RIVAROXABAN 20 MG TABLET PO (17:43)
[2023-11-17] MEDS: ACETAMINOPHEN 500 MG TABLET 1000 MG PO (21:10)
[2023-11-18] VITALS (20 sets, daily range): BP systolic 100–139; BP diastolic 72–90; PULSE 56–126; RESP 14–20; TEMP 36.1–36.8; O2SAT 95–100
[2023-11-18] MEDS: AMIODARONE 360 MG/D5W 200 ML 360 MG/200 ML BAG 16.67 MG IV CONT (01:58)
--- NOTE | 2023-11-18 09:00 | ECG_ITS ---
SEE SCANNED COPY FOR CONFIRMED REPORT MTDD
--- NOTE | 2023-11-18 09:13 | WPDHPUPDATE1 ---
History and Physical Update Update Date/Time: 11/18/23 09:13 History and Physical has been reviewed, including an updated exam of the patient. There are NO changes in the patient's condition. Risks, benefits, and alternatives have been discussed and questions answered. Patient agrees to proceed with procedure.
--- NOTE | 2023-11-18 09:14 | WPDMODSED ---
Moderate Sedation Note-Pt Data Patient Data Diagnosis: Atrial fibrillation Present Complaint: None Procedure to be performed/Plan: Elective electrical cardioversion Allergies Allergy/AdvReac Type Severity Reaction Status Date / Time clarithromycin Allergy Intermediate Unknown Verified 11/15/23 18:18 lisinopril Allergy Intermediate Unknown Verified 11/15/23 18:18 Penicillins Allergy Intermediate Unknown Verified 11/15/23 18:18 prochlorperazine Allergy Intermediate Unknown Verified 11/15/23 18:18 tetanus immune globulin Allergy Mild swelling Verified 11/15/23 18:18 at injection site heparin Allergy Unknown GOT BLOOD Verified 11/15/23 18:18 CLOTS Heparin Sodium Allergy Intermediate Unknown Uncoded 11/15/23 18:18 Home Medications Medication Instructions Recorded Confirmed Type Adults Multivitamin 1 cap PO DAILY 11/15/23 11/15/23 History ascorbic acid (vitamin C) 500 mg PO DAILY 11/15/23 11/15/23 History cyanocobalamin (vitamin B-12) 1,000 mcg PO QMWF 11/15/23 11/15/23 History felodipine 2.5 mg tablet,extended 2.5 mg PO HS 11/15/23 11/15/23 History release 24 hr ferrous sulfate 28 mg iron tablet See Rx Instructions .Route .COMPLEX 11/15/23 11/15/23 History folic acid 400 mcg PO DAILY 11/15/23 11/15/23 History testosterone cypionate 200 mg/mL See Rx Instructions .Route .COMPLEX 11/15/23 11/15/23 History intramuscular oil Current Medications: Active Medications Acetaminophen (Acetaminophen 500 Mg Tablet) 1,000 mg PO Q6H PRN PRN Reason: Mild Pain (1-3) or Fever Last Admin: 11/17/23 21:10 Dose: 1,000 mg Al Hydrox/Mg Hydrox/Simethicone (Mag Hydrox/Al Hydrox/Simeth 30 Ml Udc) 30 ml PO QID PRN PRN Reason: Dyspepsia Amiodarone HCl/Dextrose (Nexterone 360 Mg/D5w 200 Ml) 360 mg in 200 mls @ 16.667 mls/hr IV CONT .Q12H [facility] Last Infusion: 11/18/23 06:00 Dose: 0.5 mg/min, 16.67 mls/hr Magnesium Hydroxide (Magnesium Hydroxide Susp 30 Ml Udc) 30 ml PO DAILY PRN PRN Reason: Constipation Metoprolol Succinate (Metoprolol Succinate Ext Rel 25 Mg Tabcr) 25 mg PO QAM [facility] Last Admin: 11/17/23 09:28 Dose: 25 mg Ondansetron HCl (Ondansetron Inj 4 Mg/2 Ml Vial) 4 mg IV PUSH Q6H PRN PRN Reason: Nausea And Vomiting Perflutren Lipid Microsphere (Perflutren Lipid Microspheres 1.5 Ml Vial Diluted To 10 Ml Total Volume) 0 ml IV PUSH ONCE PRN; Protocol PRN Reason: adequate visualization Stop: 11/19/23 02:15 Rivaroxaban (Rivaroxaban 20 Mg Tablet) 20 mg PO DAILY@1700 [facility] Last Admin: 11/17/23 17:43 Dose: 20 mg Sedation/Anesthesia: No previous sedation/anesthesia problems (including family history). [facility] Past Medical History Medical History Atrial fibrillation (11/05/17) GERD (gastroesophageal reflux disease) (11/05/17) Hx of deep venous thrombosis Hx of pulmonary embolus Hypertension (11/05/17) Surgical History Surgical History History of gastric bypass Family History Family History Mother age 52 Sibling Hypertension Social History Social History Smoking status: Never smoker Second hand tobacco smoke exposure: No Alcohol intake: current Substance use: never Do You Feel Safe in your Home?: Yes Lack of Transportation: No Lack of Food: Never True Current Housing: I Have Housing Concerned About Future Housing: No Difficulty Paying Gas/Electric Bills: No Difficulty Paying for Meds: No Currently Unemployed: YES Education: High School Diploma/GED Difficulty w/ Childcare or Family Care: No Spiritual care concerns: No Mod Sed Physical Exam Physical Exam Pre Procedural Exam: Normal: Appearance, Eyes, Ears, Nose, Neck (Supple, normal range of motion), Throat (Posterior hypopharynx clear, nonerythematous), Airway (Norm
--- NOTE | 2023-11-18 09:44 | WPDCARDVER ---
Cardioversion Cardioversion Date of procedure: 11/18/23 Procedure: Elective electrical cardioversion Pre-op diagnosis: Atrial fibrillation with rapid ventricular response Post-op diagnosis: Same Indications: Atrial fibrillation with rapid ventricular response Description of procedure: Brief history present illness: Patient is a pleasant 68-year-old male with history of paroxysmal atrial fibrillation, obesity status post gastric bypass surgery, SOULEYMANE CPAP, hypertension, history of cardiomyopathy felt to be tachycardia induced, status post loop recorder admitted with recurrence of atrial fibrillation with rapid ventricular response who presented within 24 hours and started on systemic anticoagulation referred for elective electrical cardioversion in attempt to restore sinus rhythm. Procedure in detail: After verbal and written informed consent was obtained the patient risks, benefits, and alternatives explained in detail the patient agreed to proceed with the plan of care as outlined above. Patient was evaluated at bedside in the [facility] procedure room. On examination, neck was supple with normal range of motion, no restrictions to opening of the oral cavity, jaw angle and posterior hypopharynx was clear. Lungs were clear to auscultation. Patient was placed in appropriate 30 to 45 degree angle in a supine position. Patient was monitored throughout the study with telemetry, oxygen saturation, end-tidal CO2 monitoring, blood pressure, heart rate, and respirations. Anterior and posterior defibrillator pads placed in the appropriate positions. After confirmation of adequate sedation electrical cardioversion was carried out without complication. Patient tolerated the procedure well without difficulty. Sedation: Moderate Sedation/Anesthesia administration: Patient denied previous intolerance or complications with anesthesia/sedation. Please see sedation note for documentation of the pre-procedure physical examination. A total of 5mg intravenous Versed and a total of 125 mcg intravenous Fentanyl in multiple divided doses was utilized for moderate sedation. Sedation start time was 0923 and end time was 0939 for a total of 16 minutes [id number] intra-procedure time. Sedation was administered by a qualified observer Clarice Baker RN under my supervision with intra-procedure [id number] observation and management throughout the entirety of the procedure. There were no other issues or complications and patient tolerated the procedure well and sedation protocol well and I was present for the entirety. Findings: Elective electrical cardioversion: After confirmation of adequate sedation and persistence of atrial fibrillation, 200 joules synched biphasic energy x1 was delivered with immediate faith of sinus rhythm. Twelve lead EKG was obtained postprocedure confirming sinus rhythm. Complications: None Conclusion: Successful faith of sinus rhythm status post 200 joules synched biphasic energy x1 without complication. Recommendations: Continue systemic anticoagulation without interruption until advised and in particular for the next 30 days. Transition to oral amiodarone tapering regimen along with continuation of Toprol XL 25 mg daily. Follow-up with Dr. Mcnair as an outpatient next 4-6 weeks. Twelve lead ECG in 1 week in our office after discharge. Patient stable for discharge home from a cardiac perspective provided maintaining sinus rhythm without complication.
--- NOTE | 2023-11-18 09:45 | ECG_ITS ---
SEE SCANNED COPY FOR CONFIRMED REPORT MTDD
[2023-11-18] MEDS: METOPROLOL SUCCINATE EXT REL 25 MG TABCR PO (10:37)
[2023-11-18] MEDS: AMIODARONE HCL 200 MG TABLET 400 MG PO (10:37)
--- NOTE | 2023-11-18 13:40 | PM.DS ---
DS: Admitting Diagnosis Discharge Date 11/18/2023 Admitting Diagnosis AFib DS: Discharge Diagnosis Discharge Diagnosis (1) Atrial fibrillation: Onset Date: 11/05/17 Code(s): I48.91 - Unspecified atrial fibrillation Status: Acute (2) GERD (gastroesophageal reflux disease): Onset Date: 11/05/17 Code(s): K21.9 - Gastro-esophageal reflux disease without esophagitis Status: Acute (3) Hypertension: Onset Date: 11/05/17 Code(s): I10 - Essential (primary) hypertension Status: Acute (4) Morbid obesity: Code(s): E66.01 - Morbid (severe) obesity due to excess calories Status: Acute DS: Summary Hospital Course Hospital Course: 68-year-old male with past medical history of atrial fibrillation noted on a loop recorder. He denies any symptoms related to this.? In the ED he was noted to be in atrial fibrillation with a rate of 120 to 130s.? Has been started on diltiazem drip and was admitted for further treatment.? Chest x-ray showed no acute cardiopulmonary disease.? Cardiology has been consulted.? Echocardiogram performed 11/16/2023:? EF 55-60% indeterminate diastolic function left atrial chamber moderately enlarged mild MR mild TR.? TSH normal. Cardiology started on amiodarone drip. He remain on atrial fibrillation however rate control drip. Subsequently was cardioverted on 11/18/2023 back to sinus rhythm. He was also started on beta-isela. He will be on a tapering dose of amiodarone and follow-up as an outpatient basis for continued monitoring. He remained on Xarelto which will be continued at discharge as well. Hypertension History of DVT History of PE History of gastric bypass Morbid obesity History of cardiomyopathy ejection fraction 40% in the past. Time Spent with Patient Time attestation: Total time spent providing and/or coordinating discharge services: 35 minutes Exam Narrative: GENERAL: Well appearing, obese, non-toxic, in no acute distress. HEAD: Normocephalic, atraumatic. NECK: Supple. No adenopathy, no masses. RESPIRATORY: Airway patent, respirations nonlabored. Clear to auscultation bilaterally, no rales, rhonchi, wheezing. CARDIOVASCULAR: Rate controlled mostly AFib rhythm without murmurs, rubs, or gallops. Pedal pulses 2+ and equal bilaterally. MUSCULOSKELETAL: Moves all extremities. Strength/ROM intact without gross deformities. No significant calf tenderness to palpation. No edema. No redness/warmth to L lower leg. Area of ecchymosis to L lateral lower leg, not significantly tender. SKIN: Warm, dry, normal color. No rashes. No wounds. NEURO: A&O X3. Speech clear. Cranial nerves II-XII grossly intact. No ataxic movements. PSYCHIATRIC: Appropriate mood and affect. Normal interaction. DS: Data Data Completed and Pending Completed studies during hospitalization: Exam Type: ? ? CA echo doppler color flow Study Info Indications ?? ? - afib Complete two-dimensional, color flow and Doppler transthoracic echocardiogram is performed. Account #: ? ? [id number] Summary ? 1. Complete two-dimensional, color flow and Doppler transthoracic echocardiogram is performed. ? 2. Left ventricular chamber dimension is normal. ? 3. Left ventricular systolic function is normal, estimated at 55-60%. ? 4. There is mildly increased left ventricular wall thickness. ? 5. The left ventricular diastolic function is indeterminate. ? 6. Left atrial chamber dimension is moderately enlarged. ? 7. There is mild mitral valve regurgitation. ? 8. There is mild tricuspid valve regurgitation. Left Ventricle ? Left ventricular chamber dimension is normal. ? Left ventricular systolic function is normal, estimated at 55-60%. ? There is mildly increased left ventricular wall thickness. ? The left ventricular diastolic function is indeterminate. Right Ventricle ? Right ventricular chamber dimension is normal. ? Right ventricular systolic function is normal. Left Atr
== END 2023-11-18 14:32 | disposition home or self-care (01) | DRG 309 ==
PROVIDERS: Internal Medicine Cardiovascular Disease; Admitting Provider Internal Medicine; PCP Internal Medicine; Visit Provider Internal Medicine
PROC: 5A2204Z Restoration of Cardiac Rhythm, Single (ICD-10-PCS; principal; 2023-11-18 09:00)
DX: I48.0 Paroxysmal atrial fibrillation (principal); Z68.41 Body mass index [BMI] 40.0-44.9, adult; I43 Cardiomyopathy in diseases classified elsewhere; I11.9 Hypertensive heart disease without heart failure; E66.01 Morbid (severe) obesity due to excess calories; K21.9 Gastro-esophageal reflux disease without esophagitis; Z86.718 Personal history of other venous thrombosis and embolism; Z86.711 Personal history of pulmonary embolism; Z98.84 Bariatric surgery status; Z88.0 Allergy status to penicillin
CPT/HCPCS: 36415; 80048; 80053; 83735; 84436; 84443; 85025; 85055; 92960; 93306; 96365; 96366; 96375; A9270; G0378; G0379; J0282; J2250; J3010; J7040

== ENCOUNTER 2024-05-25 11:11 | Outpatient (CLI) | payer MEDICARE, SELFPAY ==
[2024-05-25 11:23] LABS: Hematocrit 51.2 % (37.0-46.0); Hemoglobin 16.7 g/dL (12.4-15.3); Immature Platelet Fraction Pct 7.3 % (1.0-7.0); Mean Corpuscular HGB Conc 32.6 g/dL (32-36); Mean Corpuscular Hemoglobin 28.4 pg (27.0-31.0); Mean Corpuscular Volume 87.1 fL (78.0-102.0); Platelet Count Result 109 K/mm3 (150-420); Red Blood Count 5.88 M/mm3 (4.70-6.10); Red Cell Distribution Width 14.4 % (11.6-14.4); White Blood Count 12.1 K/mm3 (4.8-10.8)
[2024-05-25 11:42] LABS: Alanine Aminotransferase 26 U/L (16-63); Albumin Level 3.5 g/dL (3.4-5.0); Alkaline Phosphatase 95 U/L (46-116); Anion Gap 11 mmol/L (4-12); Aspartate Amino Transferase 13 U/L (15-37); Blood Urea Nitrogen 14 mg/dL (7-18); Calcium 10.1 mg/dL (8.5-10.1); Carbon Dioxide 26 mmol/L (21-32); Chloride 102 mmol/L (98-108); Estimated Glomerular Filt Rate > 60; Glucose 117 mg/dL (70-99); Magnesium 1.8 mg/dL (1.8-2.4); Osmolality Calculated 289 mOsm/kg (285-295); Potassium 4.2 mmol/L (3.5-5.1); Prostate Specific Antigen 27.9 ng/mL (< OR = 4.0); Sodium 139 mmol/L (136-145); Total Protein 7.4 g/dL (6.4-8.2)
[2024-05-25 11:46] LABS: Ammonia < 10 umol/L (11-32)
== END 2024-05-25 11:12 | disposition home or self-care (01) ==
LOC: CHSLAB 11:14
PROVIDERS: PCP Internal Medicine; Visit Provider Internal Medicine
DX: N42.9 Disorder of prostate, unspecified (principal); N39.0 Urinary tract infection, site not specified; A41.9 Sepsis, unspecified organism; R53.83 Other fatigue
CPT/HCPCS: 36415; 80053; 82140; 83735; 84153; 85027; 85055; 87040

== ENCOUNTER 2024-05-29 09:59 | Outpatient (CLI) | payer MEDICARE, SELFPAY ==
[2024-05-29 10:18] LABS: Hematocrit 52.2 % (37.0-46.0); Hemoglobin 16.9 g/dL (12.4-15.3); Mean Corpuscular HGB Conc 32.4 g/dL (32-36); Mean Corpuscular Hemoglobin 27.5 pg (27.0-31.0); Mean Corpuscular Volume 84.9 fL (78.0-102.0); Mean Platelet Volume 11.3 fl (8.7-11.0); Platelet Count Result 145 K/mm3 (150-420); Red Blood Count 6.15 M/mm3 (4.70-6.10); Red Cell Distribution Width 14.6 % (11.6-14.4); White Blood Count 5.8 K/mm3 (4.8-10.8)
[2024-05-29 10:54] LABS: Band Neutrophils Percent 1 % (0-6); Eosinophils Absolute Manual 0.05 K/mm3 (0.02-0.50); Eosinophils Percent Manual 1 % (1-6); Lymphocytes Absolute Manual 1.45 K/mm3 (1.1-4.5); Lymphocytes Percent Manual 25 % (18-44); Monocytes Absolute Manual 0.87 K/mm3 (0.1-0.90); Monocytes Percent Manual 15 % (3-9); Neutrophils Absolute Manual 3.42 K/mm3 (1.3-6.7); Neutrophils Percent Manual 58 % (46-73); Platelet Estimate Adequate (Adequate); Total Cells Counted 100
[2024-05-29 11:22] LABS: Alanine Aminotransferase 44 U/L (16-63); Albumin Level 3.4 g/dL (3.4-5.0); Alkaline Phosphatase 90 U/L (46-116); Anion Gap 8 mmol/L (4-12); Aspartate Amino Transferase 25 U/L (15-37); Bilirubin,Total 0.6 mg/dL (0.00-1.00); Blood Urea Nitrogen 20 mg/dL (7-18); Calcium 10.5 mg/dL (8.5-10.1); Carbon Dioxide 31 mmol/L (21-32); Chloride 104 mmol/L (98-108); Estimated Glomerular Filt Rate > 60; Glucose 95 mg/dL (70-99); Osmolality Calculated 298 mOsm/kg (285-295); Potassium 4.3 mmol/L (3.5-5.1); Prostate Specific Antigen 19.6 ng/mL (< OR = 4.0); Sodium 143 mmol/L (136-145); Total Protein 6.5 g/dL (6.4-8.2)
== END 2024-05-29 10:00 | disposition home or self-care (01) ==
LOC: CHSLAB 10:02
PROVIDERS: PCP Internal Medicine; Visit Provider Internal Medicine
DX: N41.9 Inflammatory disease of prostate, unspecified (principal); R97.20 Elevated prostate specific antigen [PSA]
CPT/HCPCS: 36415; 80053; 84153; 85025

== ENCOUNTER 2024-07-14 12:10 | Outpatient (CLI) | payer MEDICARE, SELFPAY ==
--- NOTE | ~2024-07-14 | US_ITS ---
US retroperitoneal comp 07/14/2024 12:38 Procedure: Realtime transabdominal ultrasound of the kidneys and bladder. Indication: UTI Comparison: No prior studies for comparison. Findings: Renal echotexture is normal bilaterally without hydronephrosis, contour deforming mass or r enal calculus. There are right renal cysts, largest measuring 2.5 cm. The right kidney measures 11.1 cm and left kidney measures 11.6 cm. Bladder within normal limits. Impression: 1: Right renal cysts. Reviewed, dictated and finalized at location B. [employer] Impression: 1: Right renal cysts.
== END 2024-07-14 12:11 | disposition home or self-care (01) ==
LOC: CHSIMG 12:13
PROVIDERS: PCP Internal Medicine; Visit Provider Urology
DX: N39.0 Urinary tract infection, site not specified (principal); N28.1 Cyst of kidney, acquired
CPT/HCPCS: 76770

== ENCOUNTER 2024-08-05 14:05 | Outpatient (CLI) | payer MEDICARE, SELFPAY | END 2024-08-05 14:06 | disposition home or self-care (01) | PROVIDERS: PCP Internal Medicine; Visit Provider Internal Medicine | DX: N39.0 Urinary tract infection, site not specified (principal) | CPT/HCPCS: 87086 ==

== ENCOUNTER 2025-03-23 07:15 | Outpatient (CLI) | payer MEDICARE, SELFPAY ==
--- NOTE | ~2025-03-23 | CT_ITS ---
EXAMINATION: CT abdomen pelvis wo/w con, 03/23/2025 7:24 CDT HISTORY: MICROSCOPIC HEMATURIA COMPARISON: Comparison ultrasound 07/14/2024, previous CT of the abdomen and pelvis. TECHNIQUE: CT scan of the abdomen and pelvis was performed without and with contrast. Isovue 300, 92cc injected IV. One or more of the following dose reduction techniques were used: automated exposure control, adjustment of the mA and/or kV according to patient size, use of iterative reconstruction technique. Unless otherwise stated, incidental findings do not require dedicated follow up imaging FINDINGS: CT abdomen: LUNG BASES: The lung bases are clear. The visualized portions of the heart and pericardium are unremarkable. LIVER: Within the liver there are scattered probable subcentimeter liver cysts with dominant simple cyst left lobe liver measuring 1 x 1 cm. There is no intrahepatic biliary duct dilatation. The main portal vein is patent. SPLEEN: Unremarkable, no splenomegaly. KIDNEYS: Right Kidney: Right kidney intrarenal calculi noted the largest lower pole 2 mm. Right kidney there are innumerable subcentimeter probable simple renal cysts with dominant cyst in the inferior pole posteriorly 2 x 2 cm. Left Kidney: The left kidney there are renal calculi calculi noted the largest mid pole 2 x 3 mm, the largest in the lower pole 4 x 5 mm. Left kidney there are innumerable subcentimeter probable renal cysts with dominant simple appearing cyst mid pole 2 x 2 cm. ADRENAL GLANDS: Unremarkable. PANCREAS: Unremarkable. GALLBLADDER/BILIARY: Status post cholecystectomy. STOMACH AND ESOPHAGUS: Postsurgical changes in the stomach with small hiatal hernia. The distal stomach is decompressed. BOWEL/MESENTERY: Moderate fecal content, no colitis or diverticulitis. Appendix not identified. Mesentery is normal. Small bowel normal. ADENOPATHY/RETROPERITONEUM: No lymphadenopathy. AORTA/VASCULATURE: Normal caliber aorta. FREE FLUID OR FREE AIR: There is no free fluid.. CT pelvis: SOLID ORGANS/REPRODUCTIVE: Unremarkable. BLADDER: Artifact obscures evaluation of the bladder. OSSEOUS STRUCTURES: No sclerotic or lytic lesions. Bilateral hip arthroplasties. Scattered punctate probable bone islands. OVERLYING SOFT TISSUES: Unremarkable. IMPRESSION: 1. Bilateral renal calculi. No hydronephrosis. Bilateral simple appearing renal cysts Reviewed, dictated and finalized at location A.
--- NOTE | ~2025-03-23 | XR_ITS ---
XR abdomen/kub 1V 03/23/2025 08:21 Indication: Microscopic hematuria Procedure: KUB Comparison: No prior studies for comparison. Findings: There are bilateral renal stones. Bowel gas pattern nonobstructive. Moderate colonic fecal loading. Moderate-severe lumbar spondylosis. There are bilateral hip arthroplasties. There is cholecystectomy clips. Impression: 1: Bilateral nephrolithiasis. Reviewed, dictated and finalized at location O. Impression: 1: Bilateral nephrolithiasis.
--- OUTSIDE RECORDS SUMMARY | 2025-03-23 07:20 | XMS_ITS | Clinical Summary ---
Author Organization [facility] Address [address] [place] [address] Care Team Providers Care Concrete Pump Operator Name Role Phone Zay Weiss MD Primary Care Provider [phone] Allergies Active Allergy Reactions Criticality Noted Date Comments Clarithromycin Other (See comments) Low 01/06/2016 TINGLING SENSATION IN HANDS AND FEET Erythromycin Other (See comments) Medium Reaction: Other reaction, Heparin Other (See comments) High Reaction: Other reaction, Lisinopril Other (See comments) Medium Reaction: Cough, Penicillin Penicillins Other (See comments) Low 01/06/2016 Reaction: Unknown, EYE IRRITATION Prochlorperazine Other (See comments) High 9 Reaction: Other reaction, Medications ascorbic acid, vitamin C, (VITAMIN C) 500 mg capsule, extended release CR capsule Take one capsule PO once daily 30 0 6 Active ferrous sulfate (IRON) 325 mg (65 mg iron) capsule, extended release Take 1 tab PO once daily 30 0 6 Active folic acid (FOLVITE) 800 mcg tablet Take 3 tablets (2,400 mcg total) by mouth 6 Active testosterone cypionate (DEPO-TESTOTERONE ) 200 mg/mL injection 9 Active naproxen (NAPROSYN) 500 mg tablet Take 1 tablet (500 mg total) by mouth 2 (two) times a day with meals 60 tablet 1 9 Active cholecalciferol 25 mcg (1,000 unit) tablet Take 1 tablet (1,000 Units total) by mouth daily Active cyanocobalamin (Vitamin B-12) 500 mcg tablet Take 1 tablet (500 mcg total) by mouth every other day Active cetirizine (ZyrTEC) 10 mg chewable tablet Take 1 tablet (10 mg total) by mouth daily Active biotin 10,000 mcg capsule Take by mouth Active diphenhydrAMINE-a cetaminophen (TYLENOL PM) 25-500 mg tablet Take 1 tablet by mouth nightly as needed for sleep Active rivaroxaban (XARELTO) 20 mg tabletIndications :atrial fibrillation Take 1 tablet (20 mg total) by mouth daily 30 tablet 11 Active metoprolol XL (TOPROL-XL) 25 mg extended release tabletIndications :Paroxysmal atrial fibrillation (HCC) TAKE 1 TABLET (25 MG TOTAL) BY MOUTH DAILY. 90 tablet 3 5 Active Active Problems Problem Noted Date Diagnosed Date SOULEYMANE on CPAP 08/28/2024 Morbid obesity with BMI of 40.0-44.9, adult 07/31 History of cardiomyopathy 08/28/2024 Paroxysmal atrial fibrillation 12/13/2023 History of cardioversion 12/13/2023 Status post placement of implantable loop record er 12/13/2023 Overview (01/07/2024): [employer] Lux-Dx Loop Recorder. Dx; Parox Afib. DOI 07/27/2022-Dr Bella Bustamante. Latitude remote. Chronic anticoagulation 12/13/2023 Encounters Date Type Department Care Team Description 03/15/2025 7:15 AM CDT Ancillary Procedure [facility] Cardiology [address] [facility] [address] [place] [phone] Paroxysmal atrial fibrillation (HCC); Status post placement of implantable loop recorder 03/04/2025 3:15 PM CDT Office Visit [facility] Cardiology [address] [address] [place] [phone] Roman Mcnair MD Paroxysmal atrial fibrillation (HCC) (Primary Dx); Chronic anticoagulation; Morbid obesity with BMI of 40.0-44.9, adult (HCC); SOULEYMANE on CPAP; History of cardiomyopathy; Lipid screening; Status post placement of implantable loop recorder 02/08/2025 7:00 AM CDT Ancillary Procedure [facility] Cardiology [address] [place] [address] [address] [facility] [place] [address] Paroxysmal atrial fibrillation (HCC); Status post placement of implantable loop recorder 12/28/2024 7:15 AM CDT Ancillary Procedure [facility] Cardiology [address] [place] [address] [place]IE Estrada [address] Status post placement of implantable loop recorder (Primary Dx); Paroxysmal atrial fibrillation (HCC); NICM (nonischemic cardiomyopathy) (HCC) from Last 3 Months Surgical History Surgery Date Site/Laterality Comments HIP ARTHROPLASTY Right Hip replacement JOINT REPLACEMENT 07/05/2014 Medical History Medical History Date Comments Hx Other Medical blood clots in legs; Comments: DNM 05/25/2016 - Hypertension 10/31/20 Sleep apnea 08/19/23 Family History Medical History Relation Name Comments Hypertension Other Hypertension; Other Other Blood clots, le gs; Relation Name Status Comments Other Social History Tobacco Use Types Packs/Day Years Used Date Smoking Tobacco: Never Smokeless Tobacco: Never Alcohol Use Standard Drinks/Week Comments Yes 0 (1 standard drink = 0.6 oz pur e alcohol) Sex and Gender Information Value Date Recorded Sex Assigned at Not on file Legal Sex 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 Gender Identity Not on file Sexual Orientation Not on file Obstetrics History Last Filed Vital Signs Vital Sign Reading Time Taken Comments Blood Pressure 130/80 03/04/2025 3:07 PM CDT Pulse 76 03/04/2025 3:07 PM CDT Temperature - - Respiratory Rate - - Oxygen Saturation 97% 03/04/2025 3:07 PM CDT Inhaled Oxygen Concentration - - Weight 137.4 kg (303 lb) 03/04/2025 3:07 PM CDT Height 177.8 cm (5' 10) 03/04/2025 3:07 PM CDT Body Mass Index 43.48 03/04/2025 3:07 PM CDT Plan of Treatment Health Maintenance Due Date Last Done Comments Colon Cancer Screening-Colonoscopy 1955 Depression Screening 1955 Fall Risk Assessment 1955 Hepatitis C Screening 1955 Prostate Cancer Screening-PSA 1955 DTaP/Tdap/Td Vaccine (1 - Tdap) 11/04/1966 Hepatitis B Screening 11/04/1973 Well Visit 65+ 11/04/2020 Zoster Vaccine (2 of 2) 12/13/2023 10/18/2023 Covid-19 Vaccine (3 - 2023- season) 2024, 09/01/2020 Influenza Vaccine (#1) 2025 , 05/21/2020, 05/30/2016 Pneumococcal vaccine 65+ Completed 09/19/2022, 03/2022 Procedures Procedure Name Priority Date/Time Associated Diagnosis Comments DEVICE CHECK - REMOTE Routine 03/15/2025 4:12 PM CDT Paroxysmal atrial fibrillation (HCC) Status post placement of implantable loop recorder POCT LIPID PANEL Routine 03/04/2025 3:11 PM CDT Lipid screening DEVICE CHECK - REMOTE Routine 02/08/2025 2:51 PM CDT Paroxysmal atrial fibrillation (HCC) Status post placement of implantable loop recorder DEVICE CHECK - REMOTE Routine 12/28/2024 12:36 PM CDT Paroxysmal atrial fibrillation (HCC) NICM (nonischemic cardiomyopathy) (HCC) from Last 3 Months Results * DEVICE CHECK - REMOTE (03/15/2025 4:12 PM CDT) Anatomical Region Laterality Modality Other Narrative 03/18/2025 3:31 PM CDT [employer] Lux-Dx Loop Recorder. Dx; Parox Afib. DOI 07/27/2022-Dr Bella Bustamante. Latitude remote. Routine ILR remote. Normal device function. Battery function-Ok. Presenting rhythm: VS (SR), 60 bpm. Medications: Xarelto, Toprol-XL. Counters since last scheduled transmission on 02/08/2025. No auto or patient recorded episodes noted. See scanned report. Latitude remote f/u 04/19/2025. Dayanna Cedeno RN Roman Mcnair MD [facility] Final Result * POCT lipid panel (03/04/2025 3:11 PM CDT) Cholesterol, POC 167 <200 MG/DL HDL, POC 49 >=40 mg/dL Triglycerides, POC 70 <=149 mg/dL LDL Cholesterol POC 104 <=129 mg/dL Chol/HDL Ratio, POC 2.1 NONE Non-HDL Cholesterol, POC 118 NONE mg/dL Cholesterol Total, POC 167 30 - 199 mg/dL Capillary blood 03/04/2025 3 :11 PM CDT Roman Mcnair MD POINT OF CARE TEST ORDERA BLES Final Result * DEVICE CHECK - REMOTE (02/08/2025 2:51 PM CDT) Anatomical Region Laterality Modality Other Narrative 02/15/2025 12:49 PM CDT [employer] Lux-Dx Loop Recorder. Dx; Parox Afib. DOI 07/27/2022-Dr Bella Bustamante. Latitude remote. Routine ILR remote. Normal device function. Battery function-Ok. Presenting rhythm: VS (SR), 70 bpm. Medications: Xarelto, Toprol-XL. Counters since last scheduled transmission on 12/28/2024. No auto or patient recorded episodes noted. See scanned report. Latitude remote f/u 03/12/2025. Dayanna Cedeno RN Roman Mcnair MD [facility] Final Result * DEVICE CHECK - REMOTE (12/28/2024 12:36 PM CDT) Anatomical Region Laterality Modality Other Narrative 02/15/2025 12:49 PM CDT [employer] Lux-Dx Loop Recorder. Dx; Parox Afib. DOI 07/27/2022-Dr Bella Bustamante. Latitude remote. Routine ILR remote. Normal device function. Battery function-Ok. Presenting rhythm: VS (SR), 60 bpm. Medications: Xarelto, Toprol-XL. Counters since last scheduled transmission on 11/23/2024. No auto or patient recorded episodes noted. See scanned report. Latitude remote f/u 02/12/2025. Dayanna Cedeno, RN us Roman Mcnair MD CV [facility]AC [facility] PROCE JYOTI Final Result from Last 3 Months Insurance MEDICARE [facility] MEDICARE AETNA SENIOR SUPPLEMENT Care Teams Concrete Pump Operator Relationship Specialty Start Date End Date Zay Weiss MD PCP - General Internal Medicine 03/27/24
--- OUTSIDE RECORDS SUMMARY | 2025-03-23 07:20 | XMS_ITS | Encounter Summary ---
Author Organization [facility] Address [address] [place] [address] Care Team Providers Care Optical Glass Wet Inspector Name Role Phone Sol Gaines DIRECTOR GLOBAL STRATEGIC PUBLISHER SALES Unavailable [phone] Henok, Sonia AGACNP- Unavailable [phone] Zay Weiss MD Primary Care Provider [phone] Paulina Bustamante MD Unavailable Carlos Carcamo PA-C Unavailable [phone] Encounter Details Date Type Department Care Team (Late st Contact Info) Description 07/19/2022 Hospital Orders Only [facility] Pre/Post [address] [place], [place] [id number] Paulina Bustamante MD [address] [place] [address] Social History Tobacco Use Types Packs/Day Years Used Date Smoking Tobacco: Never Smokeless Tobacco: Never Alcohol Use Standard Drinks/Week Comments Yes 0 (1 standard drink = 0.6 oz pur e alcohol) socially Sex and Gender Information Value Date Recorded Sex Assigned at Not on file Legal Sex Male 7:59 AM LABOR MEDIATOR Gender Identity Not on file Sexual Orientation Not on file COVID-19 Exposure Response Date Recorded In the last 10 days, have yo u been in contact with someone who was confirmed or suspected to have Coronavirus/COVID-19? No / Unsure 07/05/2022 10:20 AM LABOR MEDIATOR documented as of this encounter Plan of Treatment Not on file documented as of this encounter Visit Diagnoses Not on filedocumented in this encounter Care Teams Optical Glass Wet Inspector Relationship Specialty Start Date End Date Zay Weiss MD PCP - General INTERNAL MEDICINE 06/16/20 Sol Gaines NP [place] Recording Engineer NURSE PRACTITIONER 07/19/17 03/06/23 [facility]iting [facility] NURSE PRACTITIONER 06/04/18 03/06/23 Paulina Bustamante MD [address] [place] [address] Consulting Physician CLINICAL CARDIAC ELECTROPHYSIOLOGY 03/07/23 Carlos Carcamo, OSWALDC [address] [place] [address] PHYSICIAN PRECONSTRUCTION MANAGER 03/07/23 documented as of this encounter
--- OUTSIDE RECORDS SUMMARY | 2025-03-23 07:21 | XMS_ITS | Encounter Summary ---
Author Organization [facility] Address [facility] [place] [address] Care Team Providers Care Clinical Pharmacy Coordinator Name Role Phone Kenia Concepcion MD Primary Care Provider Sol Mclain CURB MACHINE OPERATOR Unavailable [phone] [facility] Unavailable [phone] Damon Weller MD Primary Care Provider [phone] Zay Weiss MD Primary Care Provider [phone] Paulina Bustamante MD Unavailable Carlos Carcamo PA-C Unavailable [phone] Encounter Details Date Type Department Care Team (Late st Contact Info) Description 09/14/2016 Abstract [facility] [address] [place] [address] Andrea Solis MD Social History Tobacco Use Types Packs/Day Years Used Date Smoking Tobacco: Never Assessed Sex and Gender Information Value Date Recorded Sex Assigned at Not on file Legal Sex Male 7:59 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 Gender Identity Not on file Sexual Orientation Not on file documented as of this encounter Plan of Treatment Not on file documented as of this encounter Visit Diagnoses Not on filedocumented in this encounter Care Teams Clinical Pharmacy Coordinator Relationship Specialty Start Date End Date Kenia Concepcion MD PCP - General SURGERY 09/06/16 03/30/19 Damon Weller MD [address] [place] [address] PCP - General FAMILY PRACTICE 03/31/19 06/15/20 Zay Weiss MD [address] [place] [address] PCP - General INTERNAL MEDICINE 06/16/20 Sol Gaines NP [place] Tyre Finisher And Examiner NURSE PRACTITIONER 07/19/17 03/06/23 Sonia Whiting [facility] NURSE PRACTITION[facility] 06/04/18 03/06/23 Paulina Bustamante MD [address] [place] [address] Consulting Physician CLINICAL CARDIAC ELECTROPHYSIOLOGY 03/07/23 Carlos Carcamo PA-C [address] [place] [address] PHYSICIAN BACK TENDER 03/07/23 documented as of this encounter
--- OUTSIDE RECORDS SUMMARY | 2025-03-23 07:21 | XMS_ITS | Clinical Summary ---
Author Organization [facility] Address [address] [place] [address] Care Team Providers Care Aws Software Development Engineer Name Role Phone Zay Weiss MD Primary Care Provider [phone] Paulina Bustamante MD Unavailable Carlos Carcamo PA-C Unavailable [phone] Allergies Active Allergy Reactions Criticality Noted Date Comments Clarithromycin Unknown 09/06/2016 Heparin Unknown 09/19/2016 Lisinopril Unknown 09/19/2016 Penicillins Unknown 09/06/2016 Prochlorperazine Other (see comment) High 10/10/2018 Reaction: Other reaction, Medications multi vitamin/mineral s tablet Take 1 tablet by mouth daily. Active Cholecalciferol (VITAMIN D) 1000 UNIT tablet Take 1,000 Units by mouth daily. Active Ferrous Sulfate (IRON) 28 MG Tab daily. Active TESTOSTERONE CYPIONATE IM Inject into the muscle every 28 days. Active ascorbic acid 500 MG tablet Take 1 tablet by mouth daily. Active folic acid 1 MG tablet Take 1 mg by mouth daily. Active vitamin B-12 500 MCG tablet Take 500 mcg by mouth every other day. Active amoxicillin (AMOXIL) 500 MG tablet TAKE 4 TABLETS BY MOUTH 1 HOUR BEFORE APPOINTMENT 3 Active magnesium oxide (MAG-OX) 250 MG tablet Take 1 tablet (250 mg total) by mouth daily. 3 Active triamterene-hyd roCHLOROthiazid e (DYAZIDE) 37.5-25 MG capsule Take 1 capsule by mouth daily. 3 Active testosterone cypionate (DEPO TESTOSTERONE) 200 MG/ML injection INJECT 1 ML IN THE MUSCLE EVERY 2 WEEKS 3 Active B-D 3CC LUER-HERLINDA SYR 22GX1 22G X 1 3 ML Misc USE TO INJECT TESTOSTERONE EVERY 2 WEEKS 3 Active aspirin EC (ECOTRIN) 81 MG tablet Take 1 tablet (81 mg total) by mouth daily. 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 Family History Medical History Relation Comments No Known Problems Father No Known Problems Mother Relation Status Comments Father Mother Social History Tobacco Use Types Packs/Day Years Used Date Smoking Tobacco: Never Smokeless Tobacco: Never Alcohol Use Standard Drinks/Week Comments Yes 0 (1 standard drink = 0.6 oz pur e alcohol) socially Sex and Gender Information Value Date Recorded Sex Assigned at Not on file Legal Sex Male 7:59 AM LOG CARRIER OPERATOR Gender Identity Not on file Sexual Orientation Not on file Last Filed Vital Signs Vital Sign Reading Time Taken Comments Blood Pressure 136/82 05/31/2023 2:49 PM CDT Pulse 76 05/31/2023 2:49 PM CDT Temperature 36.6 C (97.9 F) 07/27/2022 9:47 AM LOG CARRIER OPERATOR Respiratory Rate 16 05/31/2023 2:49 PM CDT Oxygen Saturation 98% 07/27/2022 9:47 AM LOG CARRIER OPERATOR Inhaled Oxygen Concentration - - Weight 128.3 kg (282 lb 12.8 oz) 05/31/2023 2:49 PM CDT Height 177.8 cm (5' 10) 05/31/2023 2:49 PM CDT Body Mass Index 40.58 05/31/2023 2:49 PM CDT Plan of Treatment Health Maintenance Due Date Last Done Comments Colorectal Cancer Screening Colonoscopy (10 Years) 1955 Hepatitis C 11/04/1973 DTaP, Tdap and Td Vaccines ( 1 - Tdap) 11/04/1974 Pneumococcal Vaccine: 50+ Ye ars (1 of 1 - PCV) 11/04/2005 Zoster Vaccines (1 of 2) 11/04/2005 RSV Immunization or 60+ Years (1 - Risk 60-74 years 1-dose series) 2015 Annual Medicare Wellness Visit 11/04/2020 COVID-19 Vaccine (2023-2 5 season) 2024 Meningococcal B Vaccine Aged Out No l onger eligible based on patient's age to complete this topic Meningococcal Vaccine Aged Out No roldan ira eligible based on patient's age to complete this topic RSV Immunizations Under 20 Months Aged Out No longer eligible based on patient's age to complete this topic Medical Devices Implanted Type Area Pre Billing Specialist Device Identifier Shelf Expiration Date Model / Serial / Lot [employer] Lux Dx-07/27/2022 Implanted:Qty : 1 on 07/27/2022 by Paulina Bustamante MD Implantable Loop Recorder Left: Pectoral [employer] KUSHAL 09/26/2023 [id number] / [id number] / Insurance MEDICARE AET Care Teams Aws Software Development Engineer Relationship Specialty Start Date End Date Zay Weiss MD PCP - General INTERNAL MEDICINE 06/16/20 Paulina Bustamante MD [address] [place] [phone] Consulting Physician CLINICAL CARDIAC ELECTROPHYSIOLOGY 03/07/23 Carlos Carcamo, PA-C [address] [place] [phone] PHYSICIAN FREIGHT BROKER AGENT 03/07/23
--- OUTSIDE RECORDS SUMMARY | 2025-03-23 07:21 | XMS_ITS | Encounter Summary ---
Author Organization [facility] Address [address] [place] [address] Care Team Providers Care Gambling Supervisor Name Role Phone Zay Weiss MD Primary Care Provider [phone] Encounter Details Date Type Department Care Team ([facility] Contact Info) Description 10/28/2024 Orders Only [facility] Health Information Management [address] [place] [id number] Scanning, Provider Social History Tobacco Use Types Packs/Day Years Used Date Smoking Tobacco: Never Smokeless Tobacco: Never Alcohol Use Standard Drinks/Week Comments Yes 0 (1 standard drink = 0.6 oz pur e alcohol) Sex and Gender Information Value Date Recorded Sex Assigned at Not on file Legal Sex Male 12:43 AM PODIATRY TEACHER Gender Identity Not on file Sexual Orientation Not on file documented as of this encounter Plan of Treatment Not on file documented as of this encounter Procedures Procedure Name Priority Date/Time Associated Diagnosis Comments SCAN - LABS 10/28/2024 documented in this encounter Results * SCAN - LABS (10/28/2024) us Provider Scanning Final Result documented in this encounter Visit Diagnoses Not on filedocumented in this encounter Care Teams Gambling Supervisor Relationship Specialty Start Date End Date Zay Weiss MD PCP - General Internal Medicine 03/27/24 documented as of this encounter
[2025-03-23 07:42] LABS: Estimated Glomerular Filt Rate > 60
== END 2025-03-23 07:16 | disposition home or self-care (01) ==
LOC: CHSIMG 07:18
PROVIDERS: PCP Internal Medicine; Visit Provider Urology
DX: R31.29 Other microscopic hematuria (principal); N20.0 Calculus of kidney; N28.1 Cyst of kidney, acquired
CPT/HCPCS: 74018; 74178; Q9967